=== PATIENT | male | born 1970 | race Caucasian/White ===

== ENCOUNTER 2018-04-06 12:50 | Emergency (ER) | payer MEDICAID ==
[~2018-04-06] VITALS: Ht 167.6 cm; Wt 78.0 kg
[2018-04-06 13:00] VITALS: BP 144/94
[2018-04-06] MEDS: IBUPROFEN 800 MG TAB PO ONE (14:10)
[2018-04-06] MEDS: AMOXICILLIN 500 MG CAP PO ONE (14:10)
[2018-04-06 14:39] VITALS: BP 144/94
== END 2018-04-06 14:42 | disposition home or self-care (01) ==
LOC: MED 12:50
DX: K04.7 Periapical abscess without sinus (principal)
CPT/HCPCS: 99283

== ENCOUNTER 2018-05-26 20:16 | Emergency (ER) | payer MEDICAID ==
[~2018-05-26] VITALS: Ht 162.6 cm; Wt 63.5 kg
[2018-05-26 20:19] VITALS: BP 148/80
[2018-05-26 22:24] VITALS: BP 122/74
== END 2018-05-26 22:22 | disposition home or self-care (01) ==
LOC: MED 20:16
DX: R07.9 Chest pain, unspecified (principal); R06.02 Shortness of breath; R05 Cough; F17.200 Nicotine dependence, unspecified, uncomplicated
CPT/HCPCS: 93005; 99283

== ENCOUNTER 2020-01-25 05:20 | Emergency (ER) | payer SELFPAY ==
[~2020-01-25] VITALS: Ht 172.7 cm; Wt 86.2 kg
[2020-01-25 05:28] VITALS: BP 175/96
--- NOTE | 2020-01-25 05:44 | NUR ---
49 YO M BIB SELF FOR C/C OF 02/16 TOOTACHE X4 DAYS ON BILATERAL UPPER AND LOWER TEETH. PT STATES HE HAS BEEN TAKING OTC IBUPROFEN WITH NO RELIEF OF SYMPTOMS. PT STATES HE FEELS LIKE HIS FACE IS SWOLLEN. TEETH APPEAR DECAYED. PT STATES THAT HE DOES NOT HAVE DENTAL INSURANCE. DENIES FEVER, COUGH, SOB. NKA NO MED HX NO RX
--- NOTE | 2020-01-25 05:45 | NUR ---
CONNECTED KACY MONTEMAYOR TO PHONE DIE GRINDER TO COMMUNICATE WITH PT DURING ASSESSMENT
[2020-01-25 05:55] VITALS: BP 175/96
--- NOTE | 2020-01-25 05:55 | NUR ---
Patient discharged with v/s stable. Written and verbal after care instructions given and explained. Patient alert, oriented and verbalized understanding of instructions. Ambulatory with steady gait. All questions addressed prior to discharge. ID band removed. Patient advised to follow up with PMD. Rx of NORCO, IBUPROFEN, PENICILLIN given. Patient educated on indication of medication including possible reaction and side effects. Opportunity to ask questions provided and answered.
== END 2020-01-25 05:55 | disposition home or self-care (01) ==
LOC: MED 05:20
DX: K02.9 Dental caries, unspecified (principal); I51.89 Other ill-defined heart diseases
CPT/HCPCS: 99283